=== PATIENT | female | born 1980 ===

== ENCOUNTER → 2018-04-27 | Outpatient (REF) | LOC: ZZSLMC 12:00 | PROVIDERS: ATTEND Family Medicine | DX: O00.101 Right tubal pregnancy without intrauterine pregnancy (principal) | CPT/HCPCS: 88302 ==

== ENCOUNTER → 2019-01-11 | Outpatient (REF) | LOC: ZZSLMC 13:56 | PROVIDERS: ATTEND Surgery | DX: K29.50 Unspecified chronic gastritis without bleeding (principal) | CPT/HCPCS: 88305; 88344 ==